=== PATIENT | male | born 1940 | race Caucasian/White ===

== ENCOUNTER 2018-03-31 07:23 | Day surgery (SDC) | payer MEDICARE ==
[2018-03-30 15:26] VITALS: BMI 35.2
[~2018-03-31 07:23] MED LIST: Cyclopentolate 1% Opth Drop 2 ML BOT FS SCH; EPINEPHrine 0.3 MG in Ophthalmic Irrigation Solution 500 ML FS SCH; Fentanyl 100 MCG/2 ML VIAL ONE; Midazolam HCl 2 mg/2 ml Vial ONE; Phenylephrine 2.5% Ophth Soln 5 ML BOT FS SCH
[2018-03-31] MEDS ORDERED: Cyclopentolate 1% Opth Drop 2 ML BOT ONE (07:25)
[2018-03-31] MEDS ORDERED: Phenylephrine 2.5% Ophth Soln 5 ML BOT ONE (07:25)
--- NOTE | 2018-03-31 09:51 | OP ---
DATE OF PROCEDURE: 03/31/2018 PREOPERATIVE DIAGNOSIS: Vitreous opacification membranes, right eye. POSTOPERATIVE DIAGNOSIS: Vitreous opacification membranes, right eye. PROCEDURE: Pars plana vitrectomy and membrane peel, right eye. SURGEON: Dr. Mj Landers ANESTHESIA: Local monitored anesthesia care. PROCEDURE IN DETAIL: The patient was identified in the preoperative holding area. Appropriate conse nt for planned surgical procedure on the right eye had been obtained. The patient was transported to the operative suite. Appropriate cardiopulmonary monitoring established. Local anesthesia was obta ined using retrobulbar and modified Van Lint lid block using 50/50 mixture of 4% lidocaine and 0.75% bupivacaine. He was prepped and draped in the usual sterile manner for ophthalmic surgery on the rig ht eye. Lid speculum was placed in the right eye. 27 gauge trocars were placed in conjunctiva and s clera supratemporally, inferotemporally, and supranasally. Infusion line was placed inferotemporally . Light pipe and vitreous cutter were inserted into the eye. Core vitrectomy was performed. Vitreo us membranes were peeled from the retinal surface and into the retinal periphery using the vitreous c utter. Wide field viewing system was used to inspect the periphery. Prophylactic laser was placed i n the eye and sclerotomy sites using endolaser photocoagulation. No holes, breaks or tears were iden tified. Trocars were removed. Eye was noted to retain pressure well. Retrobulbar Kenalog and subco njunctival Ancef were placed. Antibiotic ointment placed, and the eye was patched and shielded. The patient was taken to the postoperative care unit in good condition having suffered no immediate chantelle operative complications. DISCHARGE INSTRUCTIONS: The patient was instructed to keep patch and shield on, avoid lifting or michael ding, and follow up in the morning with Dr. Landers.
[2018-03-31] MEDS ORDERED: Lidocaine 4% PF 5 ML AMP ONE (10:06)
[2018-03-31] MEDS ORDERED: CEFAZOLIN 1 GM VIAL ONE (10:06)
[2018-03-31] MEDS ORDERED: Bupivacaine 0.75% 10 ML AMP ONE (10:06)
[2018-03-31] MEDS ORDERED: Maxitrol 0.1% Opth Oint 3.5 GM TUBE ONE (10:06)
[2018-03-31] MEDS ORDERED: PROPOFOL 200 MG/20 ML VIAL ONE (10:06)
[2018-03-31] MEDS ORDERED: Lidocaine 1% PF 5 ML VIAL ONE (10:06)
[2018-03-31] MEDS ORDERED: Triamcinolone 40 MG/ML VIAL ONE (10:06)
== END 2018-03-31 09:45 | disposition home or self-care (01) ==
LOC: SDC 07:23
PROVIDERS: ATTEND Ophthalmology Retina Specialist
PROC: 08T43ZZ Resection of Right Vitreous, Percutaneous Approach (ICD-10-PCS; principal; 2018-03-31)
DX: H43.311 Vitreous membranes and strands, right eye (principal); Z79.899 Other long term (current) drug therapy; Z88.2 Allergy status to sulfonamides
CPT/HCPCS: J0171; J2250; J3010

== ENCOUNTER 2018-04-28 05:55 | Day surgery (SDC) | payer MEDICARE ==
[2018-04-27 11:41] VITALS: BMI 37.6
[2018-04-28] MEDS ORDERED: Cyclopentolate 1% Opth Drop 2 ML BOT L EYE SCH (06:00)
[2018-04-28] MEDS ORDERED: Phenylephrine 2.5% Ophth Soln 5 ML BOT L EYE SCH (06:00)
[2018-04-28] MEDS ORDERED: EPINEPHrine 0.3 MG in Ophthalmic Irrigation Solution 500 ML FS SCH (06:00)
[2018-04-28] MEDS ORDERED: Phenylephrine 2.5% Ophth Soln 5 ML BOT ONE (06:17)
[2018-04-28] MEDS ORDERED: Cyclopentolate 1% Opth Drop 2 ML BOT ONE (06:17)
[2018-04-28] MEDS ORDERED: Midazolam HCl 2 mg/2 ml Vial ONE (06:38)
--- NOTE | 2018-04-28 10:24 | OP ---
DATE OF PROCEDURE: 04/28/2018 PREOPERATIVE DIAGNOSIS: Vitreous membrane, left eye. POSTOPERATIVE DIAGNOSIS: Vitreous membrane, left eye. PROCEDURE: Pars plana vitrectomy and membrane peel, left eye. SURGEON: Dr. Mj Landers ANESTHESIA: Local with monitored anesthesia care. COMPLICATIONS: None. PROCEDURE IN DETAIL: The patient was identified in the preoperative holding area. Appropriate infor med consent for the planned surgical procedure on the left eye had been obtained. The patient was tr ansported to the operative suite. Appropriate cardiopulmonary monitoring was established. Local ane sthesia was obtained using retrobulbar modified Van Lint lid block using 50/50 mixture of 4% lidocain e, 0.75% bupivacaine. The patient was prepped and draped in usual sterile manner for ophthalmic surg murray on the left eye. Lid speculum was placed in the left eye. The 27-gauge trocars placed in conjun ctiva and sclera supratemporally, inferotemporally, and supranasally. Infusion line was placed infra temporally. Light pipe and vitreous cutter inserted into the eye. Core vitrectomy was performed. V itreous membranes were peeled from the retinal surface and peeled into the periphery using wide field viewing system. Indirect ophthalmoscopy was used to examine the retina 360 degrees. No holes, gucci ks or tears were identified. Prophylactic laser was placed behind the sclerotomy sites. Trocars wer e removed. Eye was noted to retain pressure well. ____ ____ and ____ was placed. Atropine and ant ibiotic ointment placed, and the eye was patched and shielded. DISCHARGE INSTRUCTIONS: The patient was sent to recovery unit in good condition having suffered no i mmediate complications. He was instructed to patch and shield on, avoid lifting or bending, and foll ow up in the morning with Dr. Landers.
[2018-04-28] MEDS ORDERED: Triamcinolone 40 MG/ML VIAL ONE (11:43)
[2018-04-28] MEDS ORDERED: Bupivacaine 0.75% 10 ML AMP ONE (11:43)
[2018-04-28] MEDS ORDERED: PROPOFOL 200 MG/20 ML VIAL ONE (11:43)
[2018-04-28] MEDS ORDERED: Maxitrol 0.1% Opth Oint 3.5 GM TUBE ONE (11:43)
[2018-04-28] MEDS ORDERED: CEFAZOLIN 1 GM VIAL ONE (11:43)
[2018-04-28] MEDS ORDERED: Lidocaine 1% PF 5 ML VIAL ONE (11:43)
[2018-04-28] MEDS ORDERED: Lidocaine 4% PF 5 ML AMP ONE (11:43)
--- NOTE | 2018-04-30 08:25 | EKG ---
Test Reason : PREOP Blood Pressure : / mmHG Vent. Rate : 068 BPM Atrial Rate : 068 BPM P-R Int : 134 ms QRS Dur : 098 ms QT Int : 414 ms P-R-T Axes : -02 -23 001 degrees QTc Int : 440 ms Normal sinus rhythm T-wave inversion in V1-V3, nonspecific. Borderline ECG When compared with ECG of 18-JUL-2008 12:16, No significant change was found Confirmed by FRANDY GIANG ([id number]) on 04/30/2018 8:24:33 AM Referred By: HOLLAND Confirmed By:FRANDY GIANG
== END 2018-04-28 09:36 | disposition home or self-care (01) ==
LOC: SDC 05:55
PROVIDERS: ATTEND Ophthalmology Retina Specialist
PROC: 08T53ZZ Resection of Left Vitreous, Percutaneous Approach (ICD-10-PCS; principal; 2018-04-28)
PROC: 08NF3ZZ Release Left Retina, Percutaneous Approach (ICD-10-PCS; 2018-04-28)
DX: H43.312 Vitreous membranes and strands, left eye (principal); Z79.899 Other long term (current) drug therapy; Z88.2 Allergy status to sulfonamides
CPT/HCPCS: 93005; 93010; J0171; J0690; J2001; J2250; J2704; J3301; J3490